=== PATIENT | male | born 1960 | race American Indian/Alaskan Native ===

== ENCOUNTER 2017-07-16 03:05 | Emergency (ER) | payer BC, OTHER ==
[2017-07-16 03:53] LABS: Basophils # (Auto) 0.1 K/mm3 (0.0-0.1); Basophils % (Auto) 0.9 % (0.0-1.8); Eosinophils # (Auto) 0.1 K/mm3 (0.0-0.4); Hematocrit 44.8 % (35.5-45.6); Hemoglobin 14.7 gm/dl (11.8-15.2); Lymphocytes # (Auto) 1.3 K/mm3 (1.2-5.4); Lymphocytes % (Auto) 19.2 % (13.4-35.0); Mean Corpuscular HGB Conc 33 % (32-34); Mean Corpuscular Hemoglobin 29 pg (28-32); Mean Corpuscular Volume 87 fl (84-94); Monocytes # (Auto) 0.5 K/mm3 (0.0-0.8); Monocytes % (Auto) 7.2 % (0.0-7.3); Platelet Count 174 K/mm3 (140-440); Red Blood Count 5.13 M/mm3 (3.65-5.03); Red Cell Distribution Width 13.3 % (13.2-15.2)
[2017-07-16 04:12] LABS: Alanine Aminotransferase 28 units/L (7-56); Albumin 4.2 g/dL (3.9-5); BUN/Creatinine Ratio 21; Blood Urea Nitrogen 21 mg/dL (9-20); Calcium 9.1 mg/dL (8.4-10.2); Hemolysis Index 7
[2017-07-16] MEDS ORDERED: DILAUDID IV ONE (04:17)
[2017-07-16] MEDS ORDERED: ZOFRAN IV ONE (04:17)
[2017-07-16] MEDS ORDERED: TORADOL IV ONE (04:17)
[2017-07-16] MEDS ORDERED: NACL 0.9% 1000 ML 1,000 ML IV ONE (04:17)
[2017-07-16 04:37] LABS: Bilirubin,Urine NEG (Negative); Blood,Urine NEG (Negative); Color,Urine Yellow (Yellow); Mucus,Urine FEW /HPF; Protein,Urine <15 mg/dL mg/dL (Negative); Urobilinogen,Urine < 2.0 mg/dL (<2.0)
--- NOTE | 2017-07-16 05:31 | Cat Scan Report ---
FINAL REPORT EXAM: CT ABDOMEN PELVIS WO CON HISTORY: right flank pain TECHNIQUE: Routine axial imaging was obtained of the abdomen and pelvis without oral or IV contrast. Sagittal and coronal reconstructions were reviewed. FINDINGS: The lung bases reveal calcified granulomas in the right lower lobe and right hilum. Pleural fluid is not seen. There is a small hiatal hernia. There is mild right-sided hydronephrosis with perinephric and periureteral stranding. There is a small amount of fluid in the perinephric space most likely related to rupture of a fornix and decompression of the collecting system. There is a 2.5 mm partially obstructing stone in the right UVJ. No additional right-sided renal stones are seen. The left kidney reveals a nonobstructing 4.2 mm stone in the middle 3rd of left kidney. There is also a 3.6 cm cortical cyst medially in left kidney. The gallbladder is normal size and contains at least 1 stone. The liver, biliary tree, pancreas, and spleen appear normal. The adrenal glands appear normal. The bowel loops are normal in caliber and course. The appendix is not enlarged. There is no evidence of free fluid or adenopathy. In the pelvis the prostate gland is moderately enlarged. The bladder appears normal. The skeletal structures reveal multilevel disc degeneration lumbar spine. IMPRESSION: [id number] right-sided hydronephrosis secondary to a partially obstructing stone in the right UVJ measuring 2.5 mm in diameter. Nonobstructing 4.2 mm stone in the middle 3rd of the left kidney. 3.6 cm cortical cyst left kidney. Gallstones. Calcified granulomas in the right lower lobe and right hilum. Normal appendix. Prostatic enlargement. Multilevel disc degeneration lumbar spine
--- NOTE | 2017-07-16 05:47 | Emergency Department Report ---
ED Abdominal Pain HPI - General Chief Complaint: Abdominal Pain Stated Complaint: ABD PAIN Time Seen by Provider: 07/16/17 04:16 Source: patient Mode of arrival: Ambulatory Limitations: No Limitations - History of Present Illness MD Complaint: flank pain -: hour(s) (5), During the night Location: R flank Radiation: none Migration to: no migration Severity scale (0 -10): 9 Quality: stabbing, aching, sharp Consistency: constant Improves With: nothing Worsens With: nothing Associated Symptoms: nausea. denies: vomiting, diarrhea, fever, chills, constipation, dysuria, hematemesis, hematochezia, melena, hematuria, anorexia, syncope - Related Data Previous Rx's Medication Instructions Recorded Last Taken Type Ciprofloxacin HCl [Cipro] 500 mg PO BID #14 tablet 07/16/17 Unknown Rx HYDROcodone/APAP 5-325 [[place] 1 each PO Q6HR PRN #15 tablet 07/16/17 Unknown Rx 5/325] Ondansetron [Zofran Odt] 4 mg PO Q8HR PRN #10 tab.rapdis 07/16/17 Unknown Rx Tamsulosin HCl [Flomax] 0.4 mg PO QHS #7 cap.er.24h 07/16/17 Unknown Rx Allergies Allergy/AdvReac Type Severity Reaction Status Date / Time No Known Allergies Allergy Unverified 07/16/17 03:32 ED Review of Systems ROS: Stated complaint: ABD PAIN Other details as noted in HPI Comment: All other systems reviewed and negative ED Past Medical Hx - Past Medical History Previous Medical History?: Yes Hx Hypertension: Yes - Surgical History Past Surgical History?: Yes Additional Surgical History: Knee - Social History Smoking Status: Never Smoker Substance Use Type: None - Medications Home Medications: Home Medications Medication Instructions Recorded Confirmed Last Taken Type Ciprofloxacin HCl [Cipro] 500 mg PO BID #14 tablet 07/16/17 Unknown Rx HYDROcodone/APAP 5-325 [[place] 1 each PO Q6HR PRN #15 tablet 07/16/17 Unknown Rx 5/325] Ondansetron [Zofran Odt] 4 mg PO Q8HR PRN #10 tab.rapdis 07/16/17 Unknown Rx Tamsulosin HCl [Flomax] 0.4 mg PO QHS #7 cap.er.24h 07/16/17 Unknown Rx ED Physical Exam - General Limitations: No Limitations General appearance: alert, in distress - Head Head exam: Present: atraumatic, normocephalic - Eye Eye exam: Present: normal appearance - ENT ENT exam: Present: mucous membranes moist - Neck Neck exam: Present: normal inspection - Respiratory Respiratory exam: Present: normal lung sounds bilaterally. Absent: respiratory distress, wheezes, rales, rhonchi - Cardiovascular Cardiovascular Exam: Present: regular rate, normal rhythm. Absent: systolic murmur, diastolic murmur, rubs, gallop - GI/Abdominal GI/Abdominal exam: Present: soft, normal bowel sounds. Absent: distended, tenderness, guarding, rebound - Rectal Rectal exam: Present: deferred - Extremities Exam Extremities exam: Present: normal inspection - Back Exam Back exam: Present: normal inspection, CVA tenderness (R) - Neurological Exam Neurological exam: Present: alert, oriented X3 - Psychiatric Psychiatric exam: Present: normal affect, normal mood - Skin Skin exam: Present: warm, dry, intact, normal color. Absent: rash ED Course Vital Signs 07/16/17 07/16/17 07/16/17 03:20 04:34 04:35 Temperature 97.5 F L Pulse Rate 73 72 74 Respiratory 20 12 19 Rate Blood Pressure 154/92 171/96 O2 Sat by Pulse 95 99 98 Oximetry 07/16/17 07/16/17 07/16/17 04:36 04:38 04:40 Temperature Pulse Rate 76 71 75 Respiratory 10 L 16 15 Rate Blood Pressure 171/96 171/96 171/96 O2 Sat by Pulse 90 96 88 Oximetry 07/16/17 04:47 Temperature Pulse Rate Respiratory 20 Rate Blood Pressure O2 Sat by Pulse Oximetry ED Medical Decision Making - Lab Data Result diagrams: 07/16/17 03:43 07/16/17 03:43 - Radiology Data Radiology results: report reviewed CT of abdomen and pelvis without contrast shows a 2.5 mm J obstructive stone. Patient also has gallstones present. There is moderate hydronephrosis on the right - Medical Decision Making Patient was given pain meds which did control his pain. Patient be discharged home with urology follow-up. Critical care attestation.: If time is entered above; I have spent that time in minutes in the direct care of this critically ill patient, excluding procedure time. ED Disposition Clinical Impression: Hydronephrosis Qualifiers: Hydronephrosis type: with ureteral calculous obstruction Qualified Code(s): N13.2 - Hydronephrosis with renal and ureteral calculous obstruction Disposition: TO HOME OR SELFCARE Is pt being admited?: No Does the pt Need Aspirin: No Condition: Stable Instructions: Kidney Stones (ED), Renal Colic (ED), How to Strain Your Urine ( ED) Prescriptions: Tamsulosin HCl [Flomax] 0.4 mg PO QHS #7 cap.er.24h Ciprofloxacin HCl [Cipro] 500 mg PO BID #14 tablet HYDROcodone/APAP 5-325 [[place] 5/325] 1 each PO Q6HR PRN #15 tablet PRN Reason: Pain Ondansetron [Zofran Odt] 4 mg PO Q8HR PRN #10 tab.rapdis PRN Reason: Nausea And Vomiting Referrals: SANDRA ORTEGA MD [Staff Physician] - 3-5 Days
[2017-07-16 06:26] VITALS: BP 166/99
== END 2017-07-16 06:29 | disposition home or self-care (01) ==
LOC: ED 03:05
DX: N13.2 Hydronephrosis with renal and ureteral calculous obstruction (principal); I10 Essential (primary) hypertension
CPT/HCPCS: 36415; 74176; 80053; 81001; 85025; 96361; 96374; 96375; 99284; J1170; J1885; J2405; J7030